=== PATIENT | female | born 2000 | race African-American/Black ===

== ENCOUNTER 2022-06-08 16:39 | Emergency (ER) | payer OTHER ==
[2022-06-08 17:18] LABS: BASOPHILS % (AUTO) 0.2 %; EOSINOPHILS # (AUTO) 0.1 10^3/uL (0.0-0.7); EOSINOPHILS % (AUTO) 1.4 %; MEAN CORPUSCULAR HEMOGLOBIN 29.3 pg (27.0-31.0); MEAN CORPUSCULAR HGB CONC 32.4 g/dL (32.0-36.0); MEAN CORPUSCULAR VOLUME 90.2 fL (81.0-99.0); MEAN PLATELET VOLUME 9.2 fL (7.9-10.8); MONOCYTES # (AUTO) 0.6 10^3/uL (0.0-1.0); MONOCYTES % (AUTO) 7.2 %; NEUTROPHILS # (AUTO) 4.6 10^3/uL (1.5-6.6); NEUTROPHILS % (AUTO) 55.1 %; PLT - PLATELET COUNT 337 10^3/uL (130-450); WHITE BLOOD COUNT 8.4 x10^3/uL (4.8-10.8)
[2022-06-08 17:30] LABS: MUDS CUTOFF CONCENTRATIONS CUTOFF CONC BELOW:
[2022-06-08 17:32] LABS: ACETAMINOPHEN < 10 ug/mL (10-30); ALBUMIN 4.2 g/dL (3.2-5.5); ALBUMIN/GLOBULIN RATIO 1.2 (1.0-2.2); ALKALINE PHOSPHATASE 78 IU/L (42-121); ALT ALANINE AMINOTRANSFERASE 28 IU/L (10-60); AST ASPARTATE AMINOTRANSFERASE 20 IU/L (10-42); BILIRUBIN,TOTAL 0.3 mg/dL (0.2-1.0); BUN - BLOOD UREA NITROGEN 16 mg/dL (6-20); CALCIUM 9.4 mg/dL (8.5-10.3); CARBON DIOXIDE - CO2 25 mmol/L (21-32); CHLORIDE 104 mmol/L (101-111); CREATININE 0.8 mg/dL (0.4-1.0); ETOH - ETHANOL < 5.0 mg/dL; GFR - MDRD 108 (>89); GLUCOSE 95 mg/dL (70-100); LIPASE 36 U/L (22-51); POTASSIUM 3.7 mmol/L (3.5-5.0); SALICYLATE < 6.0 mg/dL; SODIUM 138 mmol/L (135-145); TOTAL PROTEIN 7.8 g/dL (6.7-8.2)
[2022-06-08 17:32] LABS: BILIRUBIN,URINE NEGATIVE (NEGATIVE); GLUCOSE, URINE (UA) NEGATIVE (NEGATIVE); KETONES,URINE (UA) NEGATIVE (NEGATIVE); LEUKOCYTE ESTERASE, URINE NEGATIVE (NEGATIVE); NITRITE,URINE NEGATIVE (NEGATIVE); OCCULT BLOOD,URINE TRACE-INTA (NEGATIVE); PROTEIN,URINE NEGATIVE (NEGATIVE); UROBILINOGEN,URINE 0.2 (NORMAL) E.U./dL (NORMAL)
[2022-06-08 17:37] LABS: CLARITY,URINE CLEAR (CLEAR); HCG UR QUAL NEGATIVE
[2022-06-08 17:45] LABS: AMPHETAMINE SCREEN,URINE NEGATIVE (NEGATIVE); BARBITURATE SCREEN,UR NEGATIVE (NEGATIVE); BENZODIAZEPINES SCREEN, URINE NEGATIVE (NEGATIVE); COCAINE SCREEN URINE NEGATIVE (NEGATIVE); METHADONE SCREEN, URINE NEGATIVE (NEGATIVE); METHAMPHETAMINES SCREEN, URINE NEGATIVE (NEGATIVE); OPIATE SCREEN, URINE NEGATIVE (NEGATIVE); OXYCODONE SCREEN, URINE NEGATIVE (NEGATIVE); PROPOXYPHENE SCREEN, URINE NEGATIVE (NEGATIVE); THC CANNABINOID SCREEN, URINE NEGATIVE (NEGATIVE); TRICYCLIC ANTIDEPRESSANT,URINE NEGATIVE (NEGATIVE)
--- NOTE | 2022-06-08 18:52 | ED Physician Documentation ---
History of Present Illness - Stated complaint Stated Complaint: MHE - Chief complaint Chief Complaint: MHE - Additonal information Additional information: 21-year-old female was brought to the emergency department with her command from the [employer] to be evaluated for thoughts of suicide. She reports to me that she had posted on the social website read it that she was looking for ways to get a medical discharge from the [employer]. During some of her postings she may have alluded to suicidal intentions. A [employer] user reached out to her and after which command she was in. When she told the [employer] user which commanded she was in the [place] her [employer] [place]. The patient reports to me that she is [place] therapist [place]. She reports that they feel that she is likely had depression for at least 10 years. She occasionally takes propranolol for anxiety. She has historically and intermittently taken fluoxetine but does not like it as it makes her numb. She has not taken it for at least 2 months. Patient is tearful. When asked how she would attempt to commit suicide she states that she would buy a gun, paddle out into the ocean with a kayak and shoot herself in the head so that nobody could find her body. She has never a ttempted self-harm in the past. Review of Systems Constitutional: denies: Fever, Chills Nose: reports: Reviewed and negative Cardiac: reports: Reviewed and negative Respiratory: reports: Reviewed and negative Skin: reports: Reviewed and negative Musculoskeletal: reports: Reviewed and negative Neurologic: reports: Reviewed and negative Psychiatric: reports: Depressed, Suicidal, Anxiety, Insomnia. denies: Homicidal, Hallucinations, Delusions PD PAST MEDICAL HISTORY - Present Medications Home Medications: Ambulatory Orders Medication Instructions Recorded Confirmed Aripiprazole [Abilify] 2 mg PO DAILY #30 tablet 06/08/22 - Allergies Allergies/Adverse Reactions: Allergies Allergy/AdvReac Type Severity Reaction Status Date / Time No Known Drug Allergies Allergy Verified 06/08/22 16:54 PD ED PE NORMAL - General General: Alert and oriented X 3, No acute distress - HEENT HEENT: PERRL - Neck Neck: Supple, no meningeal sign, No adenopathy - Cardiac Cardiac: RRR, No murmur - Respiratory Respiratory: No respiratory distress, Clear bilaterally - Abdomen Abdomen: Normal bowel sounds, Soft, Non tender - Back Back: No CVA TTP, No spinal TTP - Derm Derm: Normal color, Warm and dry, No rash - Neuro Neuro: Alert and oriented X 3 Eye Opening: Spontaneous Motor: Obeys Commands Verbal: Oriented GCS Score: 15 - Psych Psych: No: Normal affect (Tearful affect. Poor eye contact. Reports feeling depressed. No AH or VH.) Results - Vitals Vitals: Vital Signs - 24 hr 06/08/22 16:47 Temperature 36.7 C Heart Rate 98 Respiratory 14 Rate Blood Pressure 138/97 H O2 Saturation 100 Oxygen O2 Source Room air - Labs Labs: Laboratory Tests 06/08/22 06/08/22 06/08/22 17:04 17:04 17:04 WBC 8.4 RBC 4.10 L Hgb 12.0 Hct 37.0 MCV 90.2 MCH 29.3 MCHC 32.4 RDW 12.0 Plt Count 337 MPV 9.2 Neut # (Auto) 4.6 Lymph # (Auto) 3.0 [place] # (Auto) 0.6 Eos # (Auto) 0.1 Baso # (Auto) 0.0 Absolute Nucleated RBC 0.00 Nucleated RBC % 0.0 Sodium 138 Potassium 3.7 Chloride 104 Carbon Dioxide 25 Anion Gap 9.0 BUN 16 Creatinine 0.8 Estimated GFR (MDRD) 108 Glucose 95 Calcium 9.4 Total Bilirubin 0.3 AST 20 ALT 28 Alkaline Phosphatase 78 Total Protein 7.8 Albumin 4.2 Globulin 3.6 Albumin/Globulin Ratio 1.2 Lipase 36 TSH 2.57 Urine Color Urine Clarity Urine pH Ur Specific Hubbard Urine Protein Urine Glucose (UA) Urine Ketones Urine Occult Blood Urine Nitrite Urine Bilirubin Urine Urobilinogen Ur Leukocyte Esterase Ur Microscopic Review Urine Culture Comments Urine HCG, Qual Salicylates < 6.0 Urine Opiates Screen Ur Oxycodone Screen Urine Methadone Screen Ur Propoxyphene Screen Acetaminophen < 10 L Ur Barbiturates Screen Ur Tricyclics Screen Ur Phencyclidine Scrn Ur Amphetamine Screen U Methamphetamines Scrn U Benzodiazepines Scrn Urine Cocaine Screen U Cannabinoids Screen Ethyl Alcohol < 5.0 SARS-CoV-2 (PCR) 06/08/22 06/08/22 17:24 18:49 WBC RBC Hgb Hct MCV MCH MCHC RDW Plt Count MPV Neut # (Auto) Lymph # (Auto) [place] # (Auto) Eos # (Auto) Baso # (Auto) Absolute Nucleated RBC Nucleated RBC % Sodium Potassium Chloride Carbon Dioxide Anion Gap BUN Creatinine Estimated GFR (MDRD) Glucose Calcium Total Bilirubin AST ALT Alkaline Phosphatase Total Protein Albumin Globulin Albumin/Globulin Ratio Lipase TSH Urine Color YELLOW Urine Clarity CLEAR Urine pH 7.0 Ur Specific [place] 1.020 Urine Protein NEGATIVE Urine Glucose (UA) NEGATIVE Urine Ketones NEGATIVE Urine Occult Blood TRACE-INTA Urine Nitrite NEGATIVE Urine Bilirubin NEGATIVE Urine Urobilinogen 0.2 (NORMAL) Ur Leukocyte Esterase NEGATIVE Ur Microscopic Review NOT INDICATED Urine Culture Comments NOT INDICATED Urine HCG, Qual NEGATIVE Salicylates Urine Opiates Screen NEGATIVE Ur Oxycodone Screen NEGATIVE Urine Methadone Screen NEGATIVE Ur Propoxyphene Screen NEGATIVE Acetaminophen Ur Barbiturates Screen NEGATIVE Ur Tricyclics Screen NEGATIVE Ur Phencyclidine Scrn NEGATIVE Ur Amphetamine Screen NEGATIVE U Methamphetamines Scrn NEGATIVE U Benzodiazepines Scrn NEGATIVE Urine Cocaine Screen NEGATIVE U Cannabinoids Screen NEGATIVE Ethyl Alcohol SARS-CoV-2 (PCR) NOT DETECTED PD MEDICAL DECISION MAKING - ED course Complexity details: reviewed results, re-evaluated patient, considered differential, d/w patient, d/w pre sales technical consultant ED course: 21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 She had recently made some post on social media site [employer] requesting help to find out how to get a medical discharge from the [employer]. Reportedly she also had some suicidal statements within the post. Other [employer] users reached out to her and inquired which [employer] she was posted with. When they found out they notified the command who brings her to the ER today. Patient reports to me that she is undergoing therapy with [employer] [facility]. She is intermittently been on fluoxetine but has not taken it for 2 months because it makes her numb. She has taken propanolol occasionally for anxiety. During most of the exam the patient is tearful with poor eye contact. She does endorse suicidal thoughts. She states that she would buy a gun get in a kayak and paddle out into the ocean and then shoot herself so that her body would never be found. Unfortunately she arrives to the emergency department at a time of the evening when we do not have any social media marketer limited resources therefore I am reaching out to telepsych. The patient is quite clear with this provider that she does not wish to be hospitalized. 2200: Patient has been seen by telepsych provider Dr. Valladares. She spoke at length with the patient as well as the patient's mother. At this time she thinks that the patient can be adequately safety plan for discharge home tomorrow. She would make a number of recommendations that include 1. Increasing therapy to at least once weekly with a therapist [place] 2. starting Abilify 2 mg daily as a mood stabilizer. After she has been on that a few weeks the providers on base could initiate an antidepressant as the fluoxetine she was taking before numbed her excessively. 3. If social work can help arrange a safety plan with the patient's command she can be adequately discharged home. Dr. Valladares endorse that the patient is very close with her mother and she would reach out to her mom should she begin to put a plan in place for suicide. She does make the recommendation that the patient's roommate be aware aware of the patient's clinical situation so that a plan could be adequately executed. Patient will be signed out to my nighttime colleague to be seen tomorrow by social work. Assuming social work is able to adequately execute the safety plan she will be discharged home. I have written a prescription for the Abilify. This [place]. Patient is aware that she will remain in the emergency department on your night and is pleased to know that she may not necessarily need to be hospitalized. Departure - Departure Clinical Impression: Suicidal ideation Depression Qualifiers: Depression Type: unspecified Qualified Code(s): F32.A - Depression, unspecified Prescriptions: Aripiprazole [Abilify] 2 mg PO DAILY #30 tablet
--- NOTE | 2022-06-08 22:30 | TELEPSYCH PHYS NOTE ---
Telepsych Consultation Note Consult: Name: YAMILE AMBROCIODOB: 2000 DateandTime: 06/09/2022 12:35:12 AM [facility] Length of consult: 60min This evaluation was conducted via video telepsychiatry with the assistance of onsite staff Reason for consult: suicidal thoughts Requested by: MARYSE RITCHIE History of Present Illness: 21y/o female was brought in from her post in the [employer] due to suicidal concerns. She denied prior attempts. She says she has had thoughts of getting a gun and taking a boat out to the ocean to kill herself. she denied thoughts of harm to others or h/o violence. She denied hearing voices, seeing things or feeling unsafe. She denied current s/o tim. She denied use of illicit drugs and said she only drinks socially. SHe does endorse h/o trauma with past nightmares and flashbacks but denied this to be a problem currently. She said her sleep is okay and denied h/o tim. She said her appetite is normal. She said she last felt suicidal this morning but denied suicidal thoughts at the moment. She says she would tell her mother if it got to that point and a safety factor would be that she does not wish to hurt her family. She gave consent to speak with her mother for collateral. Mom says she has been worried about her daughters depression. She says she has been more withdrawn and does not socialize or participate as much in anything. She does not think patient likes her job. Mom feels patient has some self esteem issues being and that she has gained a lot of weight. Mom would really like to see patient get into therapy more frequently. Mom supports plan to hold patient overnight and safety plan with the [employer]. Collateral Contacted: YesCollateral name:Humberto phone number: [phone] relationship to the patient:Mom Sleep issues?: No Psychiatric History/Treatment History: Past diagnoses: Dysthymia Hospitalizations: No Current Treatment:No Suicide Assessment: PSS-3: 1) Over the past 2 weeks have you felt down, depressed or hopeless?Yes 2) Over the past 2 weeks have you had thoughts of killing yourself?Yes 3) Have you ever in your life attempted to kill yourself?No Within the past 6 months? PSS-3 Secondary Screen: 1) Positive on PSS-3 questions 2 & 3 active SI with a past attempt?No 2) Have you been thinking about how you might kill yourself?Yes 3) Have you had some intention of acting on your thoughts?No 4) Lifetime psychiatric hospitalization?No 5) Has drinking or substance abuse ever been a problem for you?No 6) Current irritability, agitation, or aggression?No PSS-3 Secondary Screen Scoring: Mild Notes: 1 Mild(0-2) No current attempt and no plan/intent Moderate(3-4) No current attempt, Plan OR intent but not both Severe(5-6) Current Attempt with Plan AND intent [facility] Safety Assessment: Risk Factors Stressors: back pain Attempts/Self-injury: No Impulsivity:No Drug/Alcohol History:No Trauma History:YesDescription: Access to firearms:No HI/Violence/Property destruction:No Legal: No Family Psych History:YesDescription:Parents have had depression, dad abused alcohol in the past and brother abused drugs Family History of suicide:No Protective Factors: Can handle stress well?Unknown-NA Adventist?No External: Social supports/ Therapeutic relationships: YesDescription:Mom and roommate Relationship history: single Living situation: with roommate Employment: YesDescription:[employer] Education: [employer] Responsibility to family/children/work: YesDescription: Future orientation:YesDescription:concert in July Health History: Medical History: none Medications & Freq: none Allergies: NKDA Mental Status Exam: Appearance and Attire:Normal Psychomotor agitation:No abnormality Attitude and behavior:Cooperative Speech:Soft Mood:Depressed Affect:Constricted Thought process:Linear Thought content:intermittent suicidal thoughts none now Perception: Intel:Average Abstract:Appropriate Language:No abnormality Orientation:Oriented x 4 Sense:Normal Knowledge:Appropriate for education and socioeconomic status Memory:Intact Insight:Mild impairment Judgement:Mild impairment Gait:No abnormality Impression/Risk Assessment: Current Suicide Risk Elevated? Current Violence Risk Elevated? Issues with ability to care for self? Summary: 21y/o female brought in due to safety concerns of implying suicidal thoughts on social media. Pt admits to intermittent suicidal thoughts. She denied h/o self harm of any kind. She said she has thoughts of taking a boat out to the sea and shooting herself. She does not have a gun or the means to carry out this plan. She denied h/o tim or psychosis. She denied any precipitating event. She denied use of illicit drugs or alcohol except on a social basis. Her family hx is significant for depression and substance issues but no suicides. Mom seems appropriately concerned but does not know that hospitalization would be the best thing due to being in the [employer]. She said she feels patient has had some significant self image problems with increased weight the past year and not liking her job . SHe is advocating for safety planning with the [employer] and weekly therapy. PT currently presents well groomed but with downcast eyes and soft speech. She denies suicidal thoughts at the moment and said her main safety factor is not wanting to hurt her family. I am concerned she is not in therapy often enough to work through issues. Safety factors include family support, she gets along well with her roommate, fair insight on patients part, no substance issues, no h/o self harm, no means to her plan, she is future oriented and said she would tell her mother if she felt she was ready to try and carry out her plan. Pt appears quite depressed and in need for help but not an imminent threat to herself at this time. Diagnosis: CPT Codes: 00059 - Psychiatric Diagnostic Evaluation with Medical Services Treatment Plan: General: HOld overnight for social work to help safety plan with the [employer] in the morning. Recommend patient start excercise to induce endorphins Request weekly therapy call 911 or return to ED with any safety concerns Level of Care: outpatient follow up therapy and medication management Psychiatric Clearance: Yes Observation level 1:1 needed?: No Pharmacological: Start Abilify 2mg qd ( pt more suicidal on Prozac, so will start mood stabilizer at low dose and recommend adding antidepressant later) Patient psychotic?No Therapy: supportive Follow up needed while in the hospital?: NA Discussed plan with onsite steam table attendant: Yes Who MARYSE RITCHIE Other: Please note recommendations for weekly therapy. List names and roles of persons who participated in consult: Yamile Ambrocio, her mother Sanna and DR Valladares
[2022-06-09 08:06] VITALS: BP 127/56
[2022-06-09] MEDS ORDERED: ARIPiprazole 5 MG TABLET PO SCH (09:00)
--- NOTE | 2022-06-09 09:59 | ED Physician Documentation ---
ED Addendum - Addendum Addendum: 06/09/22 09:57 The patient was signed out to me at change of shift by Dr. Mosley, pending social work evaluation for outpatient therapy. The patient had been seen last night by Sarah Valdez, nurse practitioner, for suicidal thoughts and ongoing depression. She had a telepsych evaluation in which she was deemed stable for outpatient management, which she preferred. Social work did come and talk to the patient and found that the patient had significant insight and significant mitigating And protective factors that would make it less likely for her to actually carry out a suicide attempt. As such, they also felt she was stable for discharge and outpatient treatment. The patient does have a therapy appointment coming up very soon, but our manager social work has also reached out to her therapist to let her know about the situation. The patient is stable for discharge home. She understands that she may and should return anytime, should she begin to feel that she is more of a danger to herself or that she needs inpatient treatment. Final impression: 1. Depression 2. Suicidal ideation Disposition: Home in stable and improved condition.
== END 2022-06-09 11:37 | disposition home or self-care (01) ==
LOC: ED 16:39
DX: R45.851 Suicidal ideations (principal); F32.89 Other specified depressive episodes; Z20.822 Contact with and (suspected) exposure to COVID-19
CPT/HCPCS: 36415; 80053; 80306; 80307; 80320; 80329; 81003; 81025; 83690; 84443; 85025; 87635; 90834; 99283; A9270; Q3014; 81001; 87086

== ENCOUNTER 2022-11-03 08:44 | Emergency (ER) | payer OTHER ==
[2022-11-03] MEDS ORDERED: predniSONE 20 MG TABLET PO STA (13:22)
--- NOTE | 2022-11-03 13:25 | ED Physician Documentation ---
PD HPI LOWER EXT INJURY - Stated complaint Stated Complaint: HIP PX - Chief complaint Chief Complaint: Ext Problem - History obtained from History obtained from: Patient - Additional information Additional information: Pt comes to the ED with CC of L inguinal pain with hip flexion that started yesterday after walking around a lot. No bony pain. No injury. No prior h/o this, and no other complaints. PD PAST MEDICAL HISTORY - Present Medications Home Medications: Ambulatory Orders Medication Instructions Recorded Confirmed Venlafaxine HCl 75 mg PO DAILY 11/03/22 11/03/22 predniSONE [Deltasone] 60 mg PO DAILY 5 Days #15 tablet 11/03/22 - Allergies Allergies/Adverse Reactions: Allergies Allergy/AdvReac Type Severity Reaction Status Date / Time No Known Drug Allergies Allergy Verified 11/03/22 08:54 PD ED PE NORMAL - Vitals Vital signs reviewed: Yes - General General: Alert and oriented X 3, No acute distress, Well developed/nourished - HEENT HEENT: Atraumatic, PERRL, EOMI, Moist mucous membranes - Neck Neck: Supple, no meningeal sign - Cardiac Cardiac: Strong equal pulses - Respiratory Respiratory: No respiratory distress - Derm Derm: Normal color, Warm and dry, No rash - Extremities Extremities: No deformity, Normal ROM s pain (unweighted), No edema, Other (TTP, mild, over lateral attachment of L inguinal ligament.) - Neuro Neuro: Alert and oriented X 3 - Psych Psych: Normal mood, Normal affect Results - Vitals Vitals: Vital Signs - 24 hr 11/03/22 14:50 Temperature 36.9 C Heart Rate 77 Respiratory 12 Rate Blood Pressure 117/73 O2 Saturation 97 Oxygen O2 Source Room air PD Medical Decision Making - ED course Complexity details: considered differential, d/w patient ED course: I d/w pt that she seems to have some inflammation at the lateral attachment of the inguinal ligament to the iliac wing. She has not had any significant trauma, and I do not feel imaging is indicated. I have encouraged her to use antiinflammatories and [place] further concerns. She has been given a pair of crutches. Departure - Departure Disposition: 01 Home, Self Care Clinical Impression: Inguinal strain Qualifiers: Encounter type: initial encounter Laterality: left Qualified Code(s): S76.212A - Strain of adductor muscle, fascia and tendon of left thigh, initial encounter Condition: Stable Instructions: ED Strain Groin Prescriptions: predniSONE [Deltasone] 60 mg PO DAILY 5 Days #15 tablet Comments: You most likely strained the soft tissues of your hip area. In general, these kinds of flareups get better on their own, usually in a matter of a few days to a few weeks. You may use the crutches as needed and take ibuprofen 600 mg every 6 hours, as needed. A prescription for a steroid has also been electronically transmitted to the [facility] pharmacy in [place] for you. Discharge Date/Time: 11/03/22 14:59
[2022-11-03 15:04] VITALS: BP 117/73
== END 2022-11-03 14:59 | disposition home or self-care (01) ==
LOC: ED 08:44
DX: S76.212A Strain of adductor muscle, fascia and tendon of left thigh, initial encounter (principal); X58.XXXA Exposure to other specified factors, initial encounter; Y93.01 Activity, walking, marching and hiking
CPT/HCPCS: 99283; J7512